=== PATIENT | female | born 1995 | race African-American/Black ===

== ENCOUNTER 2024-06-13 12:53 | Inpatient (IN) | payer OTHER ==
[2024-06-13 13:23] VITALS: BMI 36.0
[2024-06-13 13:35] LABS: Fetal Membranes Rupture RUPTURE DETECTED (No Rupture)
[2024-06-13] MEDS ORDERED: Lidocaine 1% (PF) 30 ML VIAL SC PRN (13:56)
[2024-06-13] MEDS ORDERED: Methylergonovine 0.2 MG/ML VIAL IM PRN (13:56)
[2024-06-13] MEDS ORDERED: Tranexamic Acid 1,000 MG/10 ML VIAL IVP PRN (13:56)
[2024-06-13] MEDS ORDERED: Promethazine HCl 25 MG/ML VIAL IM PRN ×2 (13:56→21:43)
[2024-06-13] MEDS ORDERED: Carboprost 250 MCG/ML AMP IM PRN (13:56)
[2024-06-13] MEDS ORDERED: hydrALAZINE 20 MG/ML VIAL SLOW IVP PRN (13:56)
[2024-06-13] MEDS ORDERED: Misoprostol 200 MCG TAB PR PRN (13:56)
[2024-06-13] MEDS ORDERED: fentaNYL 50 mcg/mL 1 mL Vial SLOW IVP PRN (13:56)
[2024-06-13] MEDS ORDERED: Docusate 100 MG CAP PO PRN (13:56)
[2024-06-13] MEDS ORDERED: Diphenoxylate HCl/Atropine Tablet PO PRN (13:56)
[2024-06-13] MEDS ORDERED: Acetaminophen 500 MG TAB PO PRN (13:56)
[2024-06-13] MEDS ORDERED: Oxytocin 30 units/NS 500 ML 500 ML IV SCH ×2 (14:00)
[2024-06-13 14:34] LABS: Hematocrit 36.6 % (34.9-44.5); Hemoglobin 11.5 g/dL (12.0-15.5); Mean Corpuscular HGB CONC 31.4 g/dL (32.0-36.0); Mean Corpuscular Hemoglobin 25.9 pg (27.0-33.0); Mean Corpuscular Volume 82.4 fL (81.6-98.3); Mean Platelet Volume 13.2 fL (7.4-10.4); Platelet Count 185 10x3/uL (150-450); RBC Distribution Width 15.3 % (11.5-14.5); Red Blood Cell (RBC) Count 4.44 10x6/uL (3.90-5.03); White Blood Cell (WBC) Count 6.5 10x3/uL (3.5-10.5)
[2024-06-13 14:59] LABS: Syphilis Antibody Nonreactive (Nonreactive); Syphilis Antibody Index 0.08 S/CO (<1.00 Non-Reactive)
[2024-06-13 15:00] LABS: Hep B Surf Ag - L&D Non-Reactive S/CO (NonReactive)
[2024-06-13] MEDS: Lactated Ringer's 1,000 ML IV SCH (15:00)
[2024-06-13] MEDS: Oxytocin 30 units/NS 500 ML 500 ML IV SCH (17:04)
[2024-06-13] MEDS: fentaNYL/Ropivacaine Epidural 100 ML ONE (21:41)
[2024-06-13] MEDS ORDERED: diphenhydrAMINE 50 MG/ML VIAL IVP PRN (21:43)
[2024-06-13] MEDS ORDERED: ePHEDrine Sulfate 50 MG/10 ML VIAL SLOW IVP PRN (21:43)
[2024-06-13] MEDS ORDERED: Moisturizing Cream (Eucerin) 113 GM JAR TOP PRN (21:43)
[2024-06-13] MEDS ORDERED: Ondansetron PF 4 MG/2 ML Vial IVP PRN (21:43)
[2024-06-13] MEDS ORDERED: Naloxone HCl 0.4 mg/ml Vial IVP PRN ×2 (21:43)
[2024-06-13] MEDS ORDERED: Lactated Ringer's 500 ML IV PRN (21:43)
[2024-06-14] MEDS: Penicillin G Potassium 5 MILL.UNITS in Sodium Chloride 0.9% 100 ML IVPB SCH (07:22)
[2024-06-14] MEDS: Ondansetron PF 4 MG/2 ML Vial IVP PRN (08:44)
[2024-06-14] MEDS: fentaNYL 2 mcg/Ropivacaine 0.2% Epidural 100 ML CADD EPIDURAL SCH (09:36)
[2024-06-14] MEDS ORDERED: Penicillin G 2.5 MILL.units 2.5 MILL.UNITS in Premix 1 BAG IVPB SCH (10:15)
[2024-06-14] MEDS: Acetaminophen 325 MG TAB PO PRN (12:04)
[2024-06-14] MEDS ORDERED: Ondansetron PF 4 MG/2 ML Vial IVP PRN (14:37)
[2024-06-14] MEDS ORDERED: Polyethylene Glycol 3350 17 GM Packet PO PRN (14:37)
[2024-06-14] MEDS ORDERED: Benzocaine-Menthol 82.5 ML CAN TOP PRN (14:37)
[2024-06-14] MEDS ORDERED: diphenhydrAMINE 25 MG CAP PO PRN (14:37)
[2024-06-14] MEDS ORDERED: Milk Of Magnesia 30 ML UDCUP PO PRN (14:37)
[2024-06-14] MEDS ORDERED: Preparation H Ointment 28 GM TUBE PR PRN (14:37)
[2024-06-14] MEDS ORDERED: Acetaminophen 500 MG TAB PO PRN (14:37)
[2024-06-14] MEDS ORDERED: Lanolin Ointment 7 GM TUBE TOP PRN (14:37)
[2024-06-14] MEDS ORDERED: hydrALAZINE 20 MG/ML VIAL SLOW IVP PRN (14:37)
[2024-06-14] MEDS ORDERED: Bisacodyl 10 MG SUPP PR PRN (14:37)
[2024-06-14] MEDS: Ferrous Sulfate 325 MG TAB PO SCH (16:07)
[2024-06-14] MEDS: Ibuprofen 800 MG TAB PO SCH (16:18)
[2024-06-14] MEDS: Docusate 100 MG CAP PO SCH (22:27)
[2024-06-15 06:41] LABS: #Basophils 0.02 10x3/uL (0.0-0.2); #Eosinophils 0.03 10x3/uL (0.0-0.5); #Neutrophils 9.44 10x3/uL (1.5-8.4); %Basophils 0.2 % (0.0-2.0); %Eosinophils 0.2 % (0.0-6.0); %Lymphocytes 17.1 % (18.0-47.0); %Monocytes 5.7 % (0.0-10.0); %Neutrophils 76.6 % (40.0-75.0); Hematocrit 33.2 % (34.9-44.5); Hemoglobin 10.7 g/dL (12.0-15.5); Mean Corpuscular HGB CONC 32.2 g/dL (32.0-36.0); Mean Corpuscular Hemoglobin 26.6 pg (27.0-33.0); Mean Corpuscular Volume 82.4 fL (81.6-98.3); Mean Platelet Volume 12.4 fL (7.4-10.4); Platelet Count 147 10x3/uL (150-450); RBC Distribution Width 15.4 % (11.5-14.5); Red Blood Cell (RBC) Count 4.03 10x6/uL (3.90-5.03); White Blood Cell (WBC) Count 12.3 10x3/uL (3.5-10.5)
[2024-06-15] MEDS: Varicella virus, LIVE 0.5 ML VIAL SC ONE (07:29)
[2024-06-15] MEDS: Boostrix 0.5 ML (Tdap) VIAL (>/=7 yrs of age) IM ONE (07:29)
[2024-06-15] MEDS: Prenatal Vitamin 1 TAB PO SCH (08:45)
[2024-06-15] MEDS: Ibuprofen 800 MG TAB PO SCH (14:06)
[2024-06-16 07:27] VITALS: BP 101/56; TEMP 98.6
== END 2024-06-16 11:30 | disposition home or self-care (01) | DRG 807 ==
LOC: CSHLD/OP 12:53 → CSHLD 13:39 → CSHPP 06-14 13:37
PROVIDERS: ADMIT Family Medicine; ATTEND Family Medicine
PROC: 10E0XZZ Delivery of Products of Conception, External Approach (ICD-10-PCS; principal; 2024-06-14)
PROC: 0KQM0ZZ Repair Perineum Muscle, Open Approach (ICD-10-PCS; 2024-06-14)
PROC: 10H07YZ Insertion of Other Device into Products of Conception, Via Natural or Artificial Opening (ICD-10-PCS; 2024-06-14)
DX: O99.02 Anemia complicating childbirth (principal); Z37.0 Single live birth; Z79.82 Long term (current) use of aspirin; Z3A.38 38 weeks gestation of pregnancy; O76 Abnormality in fetal heart rate and rhythm complicating labor and delivery; O70.1 Second degree perineal laceration during delivery; D50.9 Iron deficiency anemia, unspecified; R87.810 Cervical high risk human papillomavirus (HPV) DNA test positive
CPT/HCPCS: 36415; 51702; 84112; 85025; 85027; 86780; 86850; 86900; 86901; 87340; 99285; J2405; J2540; J2590; J7120